=== PATIENT | male | born 1970 | race Caucasian/White ===

== ENCOUNTER 2017-11-02 18:27 | Emergency (ER) | payer OTHER ==
[~2017-11-02] VITALS: Ht 175.3 cm; Wt 129.0 kg
[~2017-11-02 18:27] MED LIST: ADVAIR 250/501 DISK IH; AMBIEN10 MG PO; ANTABUSE250 MG PO; AUGMENTIN875 MG PO; CEFDINIR300 MG PO; CELEXA20 MG PO; CITALOPRAM HBR20 MG PO; COMBIVENT INH14.7 GM IH; COMBIVENT200 INHALA; CONCERTA36 MG PO; NOHOMEMEDS; PREDNISONE20 MG PO; THERAGRAN1 TABLET PO; VENTOLIN HFA18 GM IH; VITAMIN B-1100 MG PO
[2017-11-03 01:39] VITALS: BP 119/72
== END 2017-11-03 01:40 | disposition home or self-care (01) ==
LOC: EME 18:27
DX: M25.461 Effusion, right knee (principal); W00.0XXA Fall on same level due to ice and snow, initial encounter; F17.200 Nicotine dependence, unspecified, uncomplicated
CPT/HCPCS: 73564; 99281; 99284

== ENCOUNTER 2017-11-09 06:04 | Emergency (ER) | payer OTHER ==
[~2017-11-09] VITALS: Ht 172.7 cm; Wt 130.2 kg
[2017-11-09] MEDS ORDERED: NORCO 5/3251 TABLET PO (09:06)
[2017-11-09 09:53] VITALS: BP 138/86
== END 2017-11-09 09:59 | disposition home or self-care (01) ==
LOC: EME 06:04
DX: I89.0 Lymphedema, not elsewhere classified (principal); F32.9 Major depressive disorder, single episode, unspecified; J44.9 Chronic obstructive pulmonary disease, unspecified; F41.9 Anxiety disorder, unspecified; Z90.5 Acquired absence of kidney; F17.200 Nicotine dependence, unspecified, uncomplicated; S83.91XA Sprain of unspecified site of right knee, initial encounter; W19.XXXA Unspecified fall, initial encounter
CPT/HCPCS: 99281; 99284

== ENCOUNTER 2017-11-19 11:46 | Inpatient (IN) | payer OTHER ==
[~2017-11-19] VITALS: Ht 172.7 cm; Wt 132.8 kg
[~2017-11-19 11:46] MED LIST changes: +NORCO 5/3251 TABLET PO
[2017-11-19 12:49] LABS: HEMATOCRIT 40.3 % (38.0-50.0); HEMOGLOBIN 14.3 G/DL (12.5-16.6); MCH 32.4 PG (29.0-34.0); MCHC 35.5 G/DL (30.0-36.0); MCV 91.4 FL (86-99); NRBC (%) 0.7 /100 WBC (0-0); PLATELET COUNT 74 K/uL (156-360); RBC DIS.WIDTH-CV 15.6 % (11.8-14.6); RBC DIS.WIDTH-SD 50.4 % (39-53); RED BLOOD COUNT 4.41 M/uL (4.00-5.50); WHITE BLOOD COUNT 4.3 K/uL (4.1-10.2)
[2017-11-19 12:57] LABS: ALBUMIN 3.9 g/dL (3.2-4.8)
[2017-11-19 12:58] LABS: CHLORIDE 97 mEq/L (99-109); POTASSIUM 3.9 mEq/L (3.7-5.4); SODIUM 134 mEq/L (136-147)
[2017-11-19 13:00] LABS: GLUCOSE 118 mg/dL (70-99); TOTAL PROTEIN 6.4 g/dL (6.4-8.3)
[2017-11-19 13:02] LABS: TOTAL BILIRUBIN 0.8 mg/dL (0.0-1.0)
[2017-11-19 13:04] LABS: ALKALINE PHOSPHATASE 131 IU/L (3-129); CREATININE 0.9 mg/dL (0.6-1.3); GFR ESTIMATE (CALCULATED) > 59 mL/min/ (58.99-99999)
[2017-11-19 13:05] LABS: AST (GOT) 74 IU/L (2-34); UREA NITROGEN (BUN) 15 mg/dL (9-23)
[2017-11-19 13:07] LABS: ALT (GPT) 62 IU/L (3-49); LIPASE 48 U/L (1.0-51.0)
[2017-11-19 13:09] LABS: TROP-I INTERPRETATION NEGATIVE; TROPONIN-I < 0.01 ng/mL (0.0-0.30)
[2017-11-19 14:37] LABS: SERUM ETHYL ALCOHOL 238 mg/dL
[2017-11-19 14:40] LABS: MAGNESIUM 1.9 mg/dL (1.3-2.7)
[2017-11-19] MEDS ORDERED: FOLIC ACID1 MG PO (15:22)
[2017-11-19] MEDS ORDERED: FUROSEMIDE40 MG PO (15:23)
[2017-11-19] MEDS ORDERED: COMBIVENT RESPIM4 GM IH (15:24)
[2017-11-19 17:13] LABS: APPEARANCE SL.HAZY ((CLEAR)); BILIRUBIN NEGATIVE; BLOOD MODERATE; COLOR YELLOW ((YELLOW)); GLUCOSE (STRIP) NEGATIVE; KETONES 80; LEUKOCYTES NEGATIVE; NITRITE NEGATIVE; PROTEIN (STRIP) >=500; SPECIFIC GRAVITY 1.018 (1.000-1.030); UROBILINOGEN 0.2 MG/DL (0.2-1.0)
[2017-11-19 17:42] LABS: BACTERIA RARE /HPF; EPITHELIAL CELLS RARE /HPF; MUCUS TRACE /LPF; UCUL ADDED? NO; WHITE BLOOD CELLS 0-5 /HPF (0-5)
[2017-11-19 18:19] VITALS: BP 160/80
[2017-11-19 20:07] VITALS: BP 157/86
[2017-11-19 21:29] VITALS: BP 145/78
[2017-11-19 23:14] LABS: ALBUMIN 3.8 g/dL (3.2-4.8); CHLORIDE 97 mEq/L (99-109); POTASSIUM 3.5 mEq/L (3.7-5.4); SODIUM 133 mEq/L (136-147)
[2017-11-19 23:16] LABS: GLUCOSE 114 mg/dL (70-99); TOTAL PROTEIN 5.6 g/dL (6.4-8.3)
[2017-11-19 23:18] LABS: TOTAL BILIRUBIN 0.7 mg/dL (0.0-1.0)
[2017-11-19 23:20] LABS: ALKALINE PHOSPHATASE 123 IU/L (3-129); CREATININE 0.8 mg/dL (0.6-1.3); GFR ESTIMATE (CALCULATED) > 59 mL/min/ (58.99-99999); PHOSPHORUS 2.2 mg/dL (2.5-4.9)
[2017-11-19 23:21] LABS: AST (GOT) 68 IU/L (2-34); UREA NITROGEN (BUN) 14 mg/dL (9-23)
[2017-11-19 23:22] LABS: DIRECT BILIRUBIN 0.5 mg/dL (0.0-0.3)
[2017-11-19 23:23] LABS: ALT (GPT) 58 IU/L (3-49)
[2017-11-19 23:25] LABS: TROP-I INTERPRETATION NEGATIVE; TROPONIN-I 0.01 ng/mL (0.0-0.30)
[2017-11-19 23:30] VITALS: BP 148/88
[2017-11-20 02:35] LABS: C DIFF TOXIN POSITIVE (NEGATIVE)
[2017-11-20 04:00] VITALS: BP 163/83
[2017-11-20 06:45] LABS: CHLORIDE 96 MEQ/L (99-109); CREATININE 0.8 MG/DL (0.6-1.3); GFR ESTIMATE (CALCULATED) > 59 mL/min/ (58.99-99999); GLUCOSE 119 mg/dL (70-99); POTASSIUM 3.9 MEQ/L (3.7-5.4); SODIUM 137 MEQ/L (136-147); UREA NITROGEN (BUN) 13 mg/dL (9-23)
[2017-11-20 07:30] VITALS: BP 131/89
[2017-11-20 12:15] VITALS: BP 160/80
[2017-11-20 14:44] LABS: CARBON DIOXIDE (BICARBONATE) 25.4 MEQ/L (20-31)
[2017-11-20 15:01] LABS: CHLORIDE 99 MEQ/L (99-109); POTASSIUM 3.7 MEQ/L (3.7-5.4); SODIUM 133 MEQ/L (136-147)
[2017-11-20 15:06] LABS: CREATININE 0.8 MG/DL (0.6-1.3); GFR ESTIMATE (CALCULATED) > 59 mL/min/ (58.99-99999); GLUCOSE 176 mg/dL (70-99); UREA NITROGEN (BUN) 10 mg/dL (9-23)
[2017-11-20 17:08] VITALS: BP 167/90
[2017-11-20 20:00] VITALS: BP 164/85
[2017-11-21 04:00] VITALS: BP 174/99
[2017-11-21 06:03] LABS: HEMATOCRIT 37.2 % (38.0-50.0); HEMOGLOBIN 12.7 G/DL (12.5-16.6); MCH 32.2 PG (29.0-34.0); MCHC 34.1 G/DL (30.0-36.0); MCV 94.2 FL (86-99); NRBC (%) 0.6 /100 WBC (0-0); PLATELET COUNT 52 K/uL (156-360); RBC DIS.WIDTH-CV 16.2 % (11.8-14.6); RBC DIS.WIDTH-SD 55.8 % (39-53); RED BLOOD COUNT 3.95 M/uL (4.00-5.50); WHITE BLOOD COUNT 3.2 K/uL (4.1-10.2)
[2017-11-21 06:49] LABS: CHLORIDE 101 MEQ/L (99-109); CREATININE 0.7 MG/DL (0.6-1.3); GFR ESTIMATE (CALCULATED) > 59 mL/min/ (58.99-99999); GLUCOSE 124 mg/dL (70-99); MAGNESIUM 1.7 mg/dl (1.3-2.7); POTASSIUM 3.4 MEQ/L (3.7-5.4); UREA NITROGEN (BUN) 7 mg/dL (9-23)
[2017-11-21 06:52] LABS: SODIUM 141 MEQ/L (136-147)
[2017-11-21 08:00] VITALS: BP 158/93
[2017-11-21 12:00] VITALS: BP 138/84
[2017-11-21 17:26] VITALS: BP 139/86
[2017-11-21 19:40] VITALS: BP 153/90
[2017-11-21 23:00] VITALS: BP 131/84
[2017-11-22 03:15] VITALS: BP 139/94
[2017-11-22 05:37] LABS: HEMOGLOBIN 12.9 G/DL (12.5-16.6); MCH 32.1 PG (29.0-34.0); MCHC 33.9 G/DL (30.0-36.0); MCV 94.5 FL (86-99); PLATELET COUNT 56 K/uL (156-360); RBC DIS.WIDTH-CV 16.2 % (11.8-14.6); RBC DIS.WIDTH-SD 55.6 % (39-53); RED BLOOD COUNT 4.02 M/uL (4.00-5.50); WHITE BLOOD COUNT 3.3 K/uL (4.1-10.2)
[2017-11-22 06:31] LABS: ALBUMIN 3.2 G/DL (3.2-4.8); ALKALINE PHOSPHATASE 86 IU/L (3-129); ALT (GPT) 37 IU/L (3-49); AST (GOT) 43 IU/L (2-34); CHLORIDE 101 MEQ/L (99-109); CREATININE 0.6 MG/DL (0.6-1.3); GFR ESTIMATE (CALCULATED) > 59 mL/min/ (58.99-99999); GLUCOSE 95 mg/dL (70-99); MAGNESIUM 1.7 mg/dl (1.3-2.7); POTASSIUM 3.1 MEQ/L (3.7-5.4); SODIUM 141 MEQ/L (136-147); TOTAL BILIRUBIN 0.5 MG/DL (0.0-1.0); TOTAL PROTEIN 5.4 G/DL (6.4-8.3); UREA NITROGEN (BUN) 7 mg/dL (9-23)
[2017-11-22 08:40] LABS: BASE EXCESS 4.8 mEq/L (-3 to +3); BICARBONATE 30.9 mEq/L (22-26); CARBOXY HGB 2.4 % (0-5); COMMENTS - BLOOD GASES A+C+; DEVICE NC; METHEMOGLOBIN 1.7 % (0-1.5); O2 FLOW 3 L/MIN; PCO2 51 mm Hg (35-45); PO2 72 mm Hg (80-100); SITE RR; pH 7.39 (7.35-7.45)
[2017-11-22 08:45] VITALS: BP 144/91
[2017-11-22 11:09] LABS: HEPATITIS B SURFACE ANTIGEN Nonreactive; HEPATITIS C ANTIBODY Nonreactive
[2017-11-22 11:10] LABS: ANTI-HEPATITIS A VIRUS (IGM) Nonreactive
[2017-11-22 11:11] LABS: ANTI-HEPATITIS B CORE (IGM) Nonreactive
[2017-11-22 20:00] VITALS: BP 130/78
[2017-11-22 23:00] VITALS: BP 121/75
[2017-11-23 04:00] VITALS: BP 150/85
[2017-11-23 06:31] LABS: HEMATOCRIT 39.4 % (38.0-50.0); HEMOGLOBIN 13.5 G/DL (12.5-16.6); MCH 32.3 PG (29.0-34.0); MCHC 34.3 G/DL (30.0-36.0); MCV 94.3 FL (86-99); NRBC (%) 0.7 /100 WBC (0-0); PLATELET COUNT 66 K/uL (156-360); RBC DIS.WIDTH-CV 16.3 % (11.8-14.6); RBC DIS.WIDTH-SD 55.8 % (39-53); RED BLOOD COUNT 4.18 M/uL (4.00-5.50); WHITE BLOOD COUNT 4.3 K/uL (4.1-10.2)
[2017-11-23 06:57] LABS: CHLORIDE 103 MEQ/L (99-109); CREATININE 0.6 MG/DL (0.6-1.3); GFR ESTIMATE (CALCULATED) > 59 mL/min/ (58.99-99999); GLUCOSE 124 mg/dL (70-99); MAGNESIUM 1.6 mg/dl (1.3-2.7); SODIUM 142 MEQ/L (136-147); UREA NITROGEN (BUN) 8 mg/dL (9-23)
[2017-11-23 09:27] VITALS: BP 149/82
[2017-11-23 11:10] VITALS: BP 141/79
[2017-11-23 19:48] VITALS: BP 138/80
[2017-11-23 23:03] VITALS: BP 125/68
[2017-11-24 03:34] VITALS: BP 138/85
[2017-11-24 08:15] VITALS: BP 105/58
[2017-11-24 11:01] LABS: CHLORIDE 102 MEQ/L (99-109); POTASSIUM 3.1 MEQ/L (3.7-5.4); SODIUM 142 MEQ/L (136-147)
[2017-11-24 11:06] LABS: CREATININE 0.7 MG/DL (0.6-1.3); GFR ESTIMATE (CALCULATED) > 59 mL/min/ (58.99-99999); GLUCOSE 172 mg/dL (70-99); UREA NITROGEN (BUN) 7 mg/dL (9-23)
[2017-11-24 13:00] VITALS: BP 137/81
[2017-11-24 15:44] VITALS: BP 124/77
[2017-11-24 19:00] VITALS: BP 137/79
[2017-11-25 00:10] VITALS: BP 121/84
[2017-11-25 04:30] VITALS: BP 121/79
[2017-11-25 06:02] LABS: CHLORIDE 103 MEQ/L (99-109); CREATININE 0.7 MG/DL (0.6-1.3); GFR ESTIMATE (CALCULATED) > 59 mL/min/ (58.99-99999); POTASSIUM 3.5 MEQ/L (3.7-5.4); SODIUM 140 MEQ/L (136-147); UREA NITROGEN (BUN) 6 mg/dL (9-23)
[2017-11-25 06:03] LABS: GLUCOSE 111 mg/dL (70-99)
[2017-11-25 08:00] VITALS: BP 126/86
[2017-11-25 12:22] VITALS: BP 132/78
[2017-11-25 16:57] VITALS: BP 128/74
[2017-11-25 20:09] VITALS: BP 110/70
[2017-11-26] VITALS (7 sets, daily range): BP systolic 100–123; BP diastolic 60–79
[2017-11-26 06:39] LABS: CHLORIDE 103 MEQ/L (99-109); CREATININE 0.8 MG/DL (0.6-1.3); GFR ESTIMATE (CALCULATED) > 59 mL/min/ (58.99-99999); GLUCOSE 121 mg/dL (70-99); POTASSIUM 3.9 MEQ/L (3.7-5.4); SODIUM 141 MEQ/L (136-147); UREA NITROGEN (BUN) 6 mg/dL (9-23)
[2017-11-27] VITALS (7 sets, daily range): BP systolic 100–131; BP diastolic 58–80
[2017-11-28 07:56] VITALS: BP 107/68
[2017-11-28 15:57] VITALS: BP 118/67
[2017-11-29 06:53] LABS: HEMATOCRIT 39.7 % (38.0-50.0); HEMOGLOBIN 12.9 G/DL (12.5-16.6); MCH 31.8 PG (29.0-34.0); MCHC 32.5 G/DL (30.0-36.0); MCV 97.8 FL (86-99); RBC DIS.WIDTH-CV 15.9 % (11.8-14.6); RBC DIS.WIDTH-SD 56.9 % (39-53); RED BLOOD COUNT 4.06 M/uL (4.00-5.50); WHITE BLOOD COUNT 6.7 K/uL (4.1-10.2)
[2017-11-29 07:02] LABS: PLATELET COUNT 210 K/uL (156-360)
[2017-11-29 08:30] VITALS: BP 120/70
[2017-11-29] MEDS ORDERED: ADVAIR HFA120 INHALA IH (14:57)
[2017-11-29] MEDS ORDERED: TRAZODONE HCL50 MG PO (14:57)
[2017-11-29] MEDS ORDERED: LIDOCARE1 EACH TP (14:57)
[2017-11-29] MEDS ORDERED: CLONIDINE HCL0.1 MG PO (14:57)
[2017-11-29] MEDS ORDERED: TRAMADOL HCL50 MG PO (14:57)
[2017-11-29] MEDS ORDERED: NICOTINE PATCH1 EAC2 TD (14:57)
[2017-11-29] MEDS ORDERED: CHLORDIAZEPOXID25 MG PO (14:57)
[2017-11-29] MEDS ORDERED: MELOXICAM7.5 MG PO (14:57)
[2017-11-29] MEDS ORDERED: NORCO 5/3251 TABLET PO (14:57)
[2017-11-29] MEDS ORDERED: VANCOMYCIN125 MG/2.5 PO (15:02)
[2017-11-29 15:46] VITALS: BP 109/70
== END 2017-11-29 17:05 | DRG 897 ==
LOC: EME 11:46 → 4EAST 13:50 → EDOF 13:50 → ENRESERV 13:54 → EDOF 14:37 → ENRESERV 14:40 → 5SOUTH 15:35 → ENRESERV 22:44 → 5SOUTH 22:51 → 4EAST 23:04 → ENRESERV 11-24 21:09 → 5EAST 11-25 19:44
PROVIDERS: Emergency Medicine; Hospitalist; Internal Medicine
DX: F10.239 Alcohol dependence with withdrawal, unspecified (principal); R56.9 Unspecified convulsions; A04.72 Enterocolitis due to Clostridium difficile, not specified as recurrent; D69.59 Other secondary thrombocytopenia; I48.0 Paroxysmal atrial fibrillation; E87.2 Acidosis; F33.1 Major depressive disorder, recurrent, moderate; E87.6 Hypokalemia; F10.229 Alcohol dependence with intoxication, unspecified; Y90.7 Blood alcohol level of 200-239 mg/100 ml; R74.0 Nonspecific elevation of levels of transaminase and lactic acid dehydrogenase [LDH]; J44.9 Chronic obstructive pulmonary disease, unspecified; D64.9 Anemia, unspecified; K70.10 Alcoholic hepatitis without ascites; M17.11 Unilateral primary osteoarthritis, right knee; R31.0 Gross hematuria; F17.200 Nicotine dependence, unspecified, uncomplicated; E66.01 Morbid (severe) obesity due to excess calories; Z68.41 Body mass index [BMI] 40.0-44.9, adult; Z59.0 Homelessness; Z91.5 Personal history of self-harm; Z91.81 History of falling; Z23 Encounter for immunization; Z90.5 Acquired absence of kidney
CPT/HCPCS: 36600; 70450; 70551; 71045; 73564; 73721; 74176; 80048; 80048 91; 80053; 80074; 80076; 81003; 82140; 82784; 82800; 82803; 82948; 83605; 83690; 83735; 83785 90; 83880; 84100; 84484; 85027; 86705; 86709; 86803; 87040; 87340; 87493; 88108; 90686; 92526 GN; 92610 GN; 93005; 93306; 93971; 94640; 94640 76; 94799; 97530 GP; 99202; 99281; 99285; G0480; J1650; J2060; J2405; J3480; J7030; J7050; J7120; S0028; S0030

== ENCOUNTER 2018-06-07 13:10 | Emergency (ER) | payer OTHER ==
[~2018-06-07] VITALS: Ht 175.3 cm; Wt 126.1 kg
[~2018-06-07 13:10] MED LIST changes: +ADVAIR HFA120 INHALA IH; +CHLORDIAZEPOXID25 MG PO; +CLONIDINE HCL0.1 MG PO; +COMBIVENT RESPIM4 GM IH; +FOLIC ACID1 MG PO; +FUROSEMIDE40 MG PO; +LIDOCARE1 EACH TP; +MELOXICAM7.5 MG PO; +NICOTINE PATCH1 EAC2 TD; +TRAMADOL HCL50 MG PO; +TRAZODONE HCL50 MG PO; +VANCOMYCIN125 MG/2.5 PO
[2018-06-07] MEDS ORDERED: VENTOLIN HFA18 GM IH (14:37)
[2018-06-07] MEDS ORDERED: COMBIVENT RESPIM4 GM IH (14:37)
[2018-06-07] MEDS ORDERED: PREDNISONE20 MG PO (14:37)
[2018-06-07 14:46] VITALS: BP 114/63
== END 2018-06-07 14:47 | disposition home or self-care (01) ==
LOC: EME 13:10 → RME 13:10
DX: J44.1 Chronic obstructive pulmonary disease with (acute) exacerbation (principal); F17.200 Nicotine dependence, unspecified, uncomplicated; Z90.5 Acquired absence of kidney
CPT/HCPCS: 71046; 99281; 99284; J7512